=== PATIENT | male | born 1965 | race Caucasian/White ===

== ENCOUNTER 2017-08-15 13:55 | Inpatient (IN) | payer MEDICARE, OTHER ==
[2017-08-15] MEDS: NS 1,000 ML IV ×4 (14:30→18:13)
[2017-08-15 14:59] LABS: BASO % 0.2 % (0.0-1.0); EOS % 0.1 % (0.0-3.0); HEMATOCRIT 42.9 % (42.0-52.0); HEMOGLOBIN 14.5 g/dl (14.0-18.0); IMMATURE GRANULOCYTE % 1.3 % (0-3.0); LYMPH # 0.9 10^3/uL (1.5-4.5); LYMPH % 5.1 % (24.0-44.0); MEAN CORPUSCULAR HEMOGLOBIN 29.4 pg (27.0-33.0); MEAN CORPUSCULAR HGB CONC 33.8 g/dl (32.0-36.5); MEAN CORPUSCULAR VOLUME 86.8 fl (80.0-96.0); MONO # 0.8 10^3/uL (0.0-0.8); MONO % 4.4 % (0.0-5.0); NEUTROPHILS # 16.1 10^3/uL (1.8-7.7); NEUTROPHILS % 88.9 % (36.0-66.0); PLATELET COUNT, AUTOMATED 378 10^3/uL (150-450); RED BLOOD COUNT 4.94 10^6/uL (4.30-6.10); RED CELL DISTRIBUTION WIDTH 12.7 % (11.5-14.5); VENOUS BASE EXCESS -1.4 (-2.0-2.0); VENOUS HCO3 23.5 MEQ/L (23.0-27.0); VENOUS O2 SATURATION 61.5 % (60.0-80.0); VENOUS PARTIAL PRESSURE CO2 40.3 mmHg (38.0-50.0); VENOUS PARTIAL PRESSURE O2 34.9 mmHg (30.0-50.0); VENOUS PH 7.384 UNITS (7.330-7.430); VENOUS STANDARD HCO3 22.5 MEQ/L; VENOUS TOTAL CO2 24.8 MEQ/L (24.0-28.0); WHITE BLOOD COUNT 18.1 10^3/uL (4.0-10.0)
[2017-08-15] MEDS: ACETAMINOPHEN TAB 650MG DOSE (2X325MG) PO ×2 (15:11→22:52)
[2017-08-15 15:17] LABS: APPEARANCE, URINE HAZY (CLEAR); BACTERIA, URINE AUTO NEGATIVE (NEGATIVE); BILIRUBIN, URINE AUTO NEGATIVE (NEGATIVE); BLOOD, URINE BLOOD 1+ (NEGATIVE); COLOR, URINE YELLOW (YELLOW); GLUCOSE, URINE (UA) AUTO 3+ mg/dL (NEGATIVE); KETONE, URINE AUTO TRACE mg/dL (NEGATIVE); LEUKOCYTE ESTERASE, URINE AUTO NEGATIVE (NEGATIVE); NITRITE, URINE AUTO NEGATIVE (NEGATIVE); OSMOLALITY SERUM 308 MOSM/KG (275-295); PROTEIN, URINE AUTO NEGATIVE (NEGATIVE); RBC, URINE AUTO 1 /HPF (0-3); SPECIFIC GRAVITY URINE AUTO 1.018 (1.002-1.035); SQUAMOUS EPITHELIAL CELL UR AU 0 /HPF (0-6); WBC, URINE AUTO 5 /HPF (0-3)
[2017-08-15 15:21] LABS: AMMONIA 29 uMOL/L (<32)
[2017-08-15 15:27] LABS: ALBUMIN 2.3 GM/DL (3.2-5.2); ALBUMIN/GLOBULIN RATIO 0.42 (1.00-1.93); ALKALINE PHOSPHATASE 151 U/L (45-117); ALT/SGPT 14 U/L (12-78); ANION GAP 13 MEQ/L (8-16); AST/SGOT 17 U/L (7-37); BILIRUBIN,DIRECT 0.7 MG/DL (0.0-0.2); BILIRUBIN,TOTAL 1.6 MG/DL (0.2-1.0); BLOOD UREA NITROGEN 43 MG/DL (7-18); CALCIUM LEVEL 8.6 MG/DL (8.5-10.1); CARBON DIOXIDE LEVEL 23 MEQ/L (21-32); CHLORIDE LEVEL 91 MEQ/L (98-107); CPK CREATINE PHOSPHOKINASE 45 U/L (39-308); CREATININE FOR GFR 1.87 MG/DL (0.70-1.30); GLOMERULAR FILTRATION RATE 40.6 (>56); SODIUM LEVEL 127 MEQ/L (136-145); TOTAL PROTEIN 7.8 GM/DL (6.4-8.2); TROPONIN I < 0.02 NG/ML (< 0.10)
[2017-08-15 15:29] LABS: CK-MB VALUE MASS < 1.0 NG/ML (<3.6); ETHYL ALCOHOL (ETHANOL) < 0.003 % (0.000-0.010); GLUCOSE, FASTING 473 MG/DL (70-100); MB/CK RELATIVE INDEX 2.22 (< OR =4); POTASSIUM SERUM 5.3 MEQ/L (3.5-5.1)
[2017-08-15 15:30] LABS: AMPHETAMINES LEVEL URINE NEGATIVE (NEGATIVE); BARBITURATES URINE NEGATIVE (NEGATIVE); BENZODIAZEPINES URINE NEGATIVE (NEGATIVE); CANNABINOIDS URINE NEGATIVE (NEGATIVE); COCAINE METABOLITE URINE NEGATIVE (NEGATIVE); METHADONE URINE NEGATIVE (NEGATIVE); OPIATES URINE NEGATIVE (NEGATIVE); PHENCYCLIDINE URINE NEGATIVE (NEGATIVE)
[2017-08-15 15:31] LABS: LACTIC ACID SEPSIS PROTOCOL 3.9 MMOL/L (0.4-2.0)
[2017-08-15] MEDS: CEFTRIAXONE SOD 1 GM in APPROPRIATE DILUENT 1 EA IV (16:15)
[2017-08-15] MEDS: HumaLOG INSULIN (NovoLOG) PER UNIT SC ×3 (16:19→21:36)
[2017-08-15 16:25] LABS: BEDSIDE GLUCOSE 422 MG/DL (70-105)
[2017-08-15] MEDS ORDERED: NS 1,000 ML IV (16:45)
[2017-08-15] MEDS ORDERED: GLUCOSE 4 GM CHEW TABLET PO (17:45)
[2017-08-15] MEDS ORDERED: DEXTROSE 50% 50 ML SYRINGE IV (17:45)
[2017-08-15] MEDS ORDERED: GLUCAGON FOR INJ 1 MG VIAL (J1610) SC (17:45)
[2017-08-15] MEDS: MEROPENEM INJ 1 GM in APPROPRIATE DILUENT 1 EA IV (17:54)
[2017-08-15 18:10] LABS: BEDSIDE GLUCOSE 320 MG/DL (70-105)
[2017-08-15] MEDS: VANCOMYCIN HCL 1,000 MG, VIAL MATE ADAPTER 1 EACH in D5W 250 ML IV (18:37)
[2017-08-15 18:45] LABS: ESTIMATED AVERAGE GLUCOSE 240 MG/DL (60-110)
[2017-08-15 18:55] LABS: ANION GAP 8 MEQ/L (8-16); BLOOD UREA NITROGEN 40 MG/DL (7-18); CALCIUM LEVEL 7.8 MG/DL (8.5-10.1); CARBON DIOXIDE LEVEL 25 MEQ/L (21-32); CHLORIDE LEVEL 99 MEQ/L (98-107); CREATININE FOR GFR 1.31 MG/DL (0.70-1.30); GLOMERULAR FILTRATION RATE > 60.0 (>56); GLUCOSE, FASTING 315 MG/DL (70-100); POTASSIUM SERUM 4.4 MEQ/L (3.5-5.1); SODIUM LEVEL 132 MEQ/L (136-145)
[2017-08-15 19:00] LABS: LACTIC ACID SEPSIS PROTOCOL 2.6 MMOL/L (0.4-2.0)
[2017-08-15 21:32] LABS: BEDSIDE GLUCOSE 306 MG/DL (70-105)
[2017-08-15] MEDS: SIMVASTATIN 10 MG TAB PO (21:35)
[2017-08-15] MEDS: HEPARIN SOD (PORCINE) 5000 UNITS/ML VIAL SC (21:36)
[2017-08-16 00:52] LABS: BEDSIDE GLUCOSE 326 MG/DL (70-105)
[2017-08-16] MEDS: MEROPENEM INJ 1 GM in APPROPRIATE DILUENT 1 EA IV ×3 (01:27→17:16)
[2017-08-16] MEDS: HumaLOG INSULIN (NovoLOG) PER UNIT SC ×6 (01:27→21:00)
[2017-08-16] MEDS: NS 1,000 ML IV ×3 (02:41→17:16)
[2017-08-16 05:54] LABS: BEDSIDE GLUCOSE 222 MG/DL (70-105)
[2017-08-16] MEDS: HEPARIN SOD (PORCINE) 5000 UNITS/ML VIAL SC ×3 (05:59→21:50)
[2017-08-16] MEDS: VANCOMYCIN HCL 1,000 MG, VIAL MATE ADAPTER 1 EACH in D5W 250 ML IV ×2 (06:39→18:37)
[2017-08-16 08:01] LABS: HEMATOCRIT 33.7 % (42.0-52.0); HEMOGLOBIN 11.4 g/dl (14.0-18.0); MEAN CORPUSCULAR HEMOGLOBIN 29.7 pg (27.0-33.0); MEAN CORPUSCULAR HGB CONC 33.8 g/dl (32.0-36.5); MEAN CORPUSCULAR VOLUME 87.8 fl (80.0-96.0); PLATELET COUNT, AUTOMATED 271 10^3/uL (150-450); RED BLOOD COUNT 3.84 10^6/uL (4.30-6.10); WHITE BLOOD COUNT 16.3 10^3/uL (4.0-10.0)
[2017-08-16 08:03] LABS: ADD MANUAL DIFFER YES; DIFF SLIDE NUMBER 87; POSITIVE MORPH POS FLAG
[2017-08-16 08:21] LABS: BANDS 2 % (< 11); LYMPHOCYTES 5 % (16-52); MONOCYTES 5 % (0-8); NEUTROPHILS 88 % (35-75); PLATELET ESTIMATE NORMAL (NORMAL)
[2017-08-16] MEDS: ASPIRIN 81 MG ENTERIC TAB PO (08:24)
[2017-08-16] MEDS: LEVEMIR (INSULIN DETEMIR) 1 UNITS/0.01ML SC ×2 (08:24→21:50)
[2017-08-16] MEDS: ACETAMINOPHEN TAB 650MG DOSE (2X325MG) PO (08:24)
[2017-08-16 08:35] LABS: ANION GAP 8 MEQ/L (8-16); BLOOD UREA NITROGEN 34 MG/DL (7-18); CALCIUM LEVEL 7.8 MG/DL (8.5-10.1); CARBON DIOXIDE LEVEL 24 MEQ/L (21-32); CHLORIDE LEVEL 103 MEQ/L (98-107); CREATININE FOR GFR 1.01 MG/DL (0.70-1.30); GLOMERULAR FILTRATION RATE > 60.0 (>56); GLUCOSE, FASTING 258 MG/DL (70-100); POTASSIUM SERUM 4.1 MEQ/L (3.5-5.1); SODIUM LEVEL 135 MEQ/L (136-145)
[2017-08-16 12:38] LABS: BEDSIDE GLUCOSE 202 MG/DL (70-105)
[2017-08-16 16:57] LABS: BEDSIDE GLUCOSE 235 MG/DL (70-105)
[2017-08-16 21:01] LABS: BEDSIDE GLUCOSE 200 MG/DL (70-105)
[2017-08-16] MEDS: SIMVASTATIN 10 MG TAB PO (21:49)
[2017-08-17] MEDS: MEROPENEM INJ 1 GM in APPROPRIATE DILUENT 1 EA IV (02:06)
[2017-08-17] MEDS: NS 1,000 ML IV ×3 (05:03→23:17)
[2017-08-17 05:36] LABS: HEMATOCRIT 30.8 % (42.0-52.0); HEMOGLOBIN 10.2 g/dl (14.0-18.0); MEAN CORPUSCULAR HEMOGLOBIN 29.1 pg (27.0-33.0); MEAN CORPUSCULAR HGB CONC 33.1 g/dl (32.0-36.5); PLATELET COUNT, AUTOMATED 232 10^3/uL (150-450); RED CELL DISTRIBUTION WIDTH 12.9 % (11.5-14.5)
[2017-08-17 05:50] LABS: ADD MANUAL DIFFER YES; DIFF SLIDE NUMBER 54; POSITIVE MORPH POS FLAG
[2017-08-17 05:55] LABS: BANDS 4 % (< 11); EOSINOPHILS 2 % (0-5); LYMPHOCYTES 11 % (16-52); MONOCYTES 8 % (0-8); NEUTROPHILS 75 % (35-75); PLATELET ESTIMATE NORMAL (NORMAL)
[2017-08-17 05:59] LABS: ANION GAP 5 MEQ/L (8-16); BLOOD UREA NITROGEN 23 MG/DL (7-18); CALCIUM LEVEL 7.4 MG/DL (8.5-10.1); CARBON DIOXIDE LEVEL 25 MEQ/L (21-32); CHLORIDE LEVEL 104 MEQ/L (98-107); CREATININE FOR GFR 0.62 MG/DL (0.70-1.30); GLOMERULAR FILTRATION RATE > 60.0 (>56); GLUCOSE, FASTING 119 MG/DL (70-100); SODIUM LEVEL 134 MEQ/L (136-145); VANCOMYCIN LEVEL TROUGH 7.6 UG/ML (10.0-20.0)
[2017-08-17] MEDS: VANCOMYCIN HCL 1,000 MG, VIAL MATE ADAPTER 1 EACH in D5W 250 ML IV ×3 (07:04→23:16)
[2017-08-17] MEDS: HEPARIN SOD (PORCINE) 5000 UNITS/ML VIAL SC ×3 (07:04→21:55)
[2017-08-17] MEDS: ASPIRIN 81 MG ENTERIC TAB PO (08:14)
[2017-08-17] MEDS: HumaLOG INSULIN (NovoLOG) PER UNIT SC ×4 (08:14→21:00)
[2017-08-17] MEDS: LEVEMIR (INSULIN DETEMIR) 1 UNITS/0.01ML SC ×2 (08:23→21:56)
[2017-08-17 11:58] LABS: BEDSIDE GLUCOSE 165 MG/DL (70-105)
[2017-08-17] MEDS: ACETAMINOPHEN TAB 650MG DOSE (2X325MG) PO (14:27)
[2017-08-17] MEDS: CALCIUM CARBONATE 500 MG CHEW U/D PO ×2 (16:39→21:55)
[2017-08-17 17:54] LABS: BEDSIDE GLUCOSE 213 MG/DL (70-105)
[2017-08-17 21:07] LABS: BEDSIDE GLUCOSE 193 MG/DL (70-105)
[2017-08-17] MEDS: SIMVASTATIN 10 MG TAB PO (21:56)
[2017-08-18] MEDS: NS 1,000 ML IV ×2 (01:25→09:25)
[2017-08-18 05:39] LABS: BASO % 0.2 % (0.0-1.0); EOS # 0.2 10^3/uL (0.0-0.50); HEMATOCRIT 30.1 % (42.0-52.0); HEMOGLOBIN 10.1 g/dl (14.0-18.0); IMMATURE GRANULOCYTE % 1.6 % (0-3.0); LYMPH # 1.5 10^3/uL (1.5-4.5); LYMPH % 15.9 % (24.0-44.0); MEAN CORPUSCULAR HEMOGLOBIN 28.9 pg (27.0-33.0); MEAN CORPUSCULAR HGB CONC 33.6 g/dl (32.0-36.5); MONO # 0.7 10^3/uL (0.0-0.8); MONO % 7.6 % (0.0-5.0); NEUTROPHILS # 6.7 10^3/uL (1.8-7.7); NEUTROPHILS % 72.7 % (36.0-66.0); PLATELET COUNT, AUTOMATED 238 10^3/uL (150-450); RED CELL DISTRIBUTION WIDTH 12.8 % (11.5-14.5); WHITE BLOOD COUNT 9.2 10^3/uL (4.0-10.0)
[2017-08-18 06:13] LABS: ANION GAP 7 MEQ/L (8-16); BLOOD UREA NITROGEN 15 MG/DL (7-18); CALCIUM LEVEL 7.6 MG/DL (8.5-10.1); CARBON DIOXIDE LEVEL 24 MEQ/L (21-32); CHLORIDE LEVEL 105 MEQ/L (98-107); CREATININE FOR GFR 0.51 MG/DL (0.70-1.30); GLOMERULAR FILTRATION RATE > 60.0 (>56); GLUCOSE, FASTING 86 MG/DL (70-100); POTASSIUM SERUM 3.9 MEQ/L (3.5-5.1); SODIUM LEVEL 136 MEQ/L (136-145)
[2017-08-18] MEDS: HEPARIN SOD (PORCINE) 5000 UNITS/ML VIAL SC ×3 (06:57→21:58)
[2017-08-18] MEDS: VANCOMYCIN HCL 1,000 MG, VIAL MATE ADAPTER 1 EACH in D5W 250 ML IV ×3 (06:57→23:09)
[2017-08-18] MEDS: HumaLOG INSULIN (NovoLOG) PER UNIT SC ×4 (07:20→20:56)
[2017-08-18] MEDS: ASPIRIN 81 MG ENTERIC TAB PO (07:38)
[2017-08-18] MEDS: LEVEMIR (INSULIN DETEMIR) 1 UNITS/0.01ML SC ×2 (09:00→21:59)
[2017-08-18 12:18] LABS: BEDSIDE GLUCOSE 194 MG/DL (70-105)
[2017-08-18 15:24] LABS: VANCOMYCIN LEVEL TROUGH 9.7 UG/ML (10.0-20.0)
[2017-08-18 17:24] LABS: BEDSIDE GLUCOSE 187 MG/DL (70-105)
[2017-08-18 21:25] LABS: BEDSIDE GLUCOSE 243 MG/DL (70-105)
[2017-08-18] MEDS: SIMVASTATIN 10 MG TAB PO (21:58)
[2017-08-19] MEDS: HEPARIN SOD (PORCINE) 5000 UNITS/ML VIAL SC ×3 (06:33→22:06)
[2017-08-19] MEDS: ACETAMINOPHEN TAB 650MG DOSE (2X325MG) PO (06:33)
[2017-08-19] MEDS: VANCOMYCIN HCL 1,000 MG, VIAL MATE ADAPTER 1 EACH in D5W 250 ML IV (06:33)
[2017-08-19 07:29] LABS: BASO % 0.4 % (0.0-1.0); EOS # 0.2 10^3/uL (0.0-0.50); HEMOGLOBIN 9.8 g/dl (14.0-18.0); IMMATURE GRANULOCYTE % 2.4 % (0-3.0); LYMPH # 1.5 10^3/uL (1.5-4.5); LYMPH % 18.1 % (24.0-44.0); MEAN CORPUSCULAR HEMOGLOBIN 29.4 pg (27.0-33.0); MEAN CORPUSCULAR HGB CONC 33.8 g/dl (32.0-36.5); MEAN CORPUSCULAR VOLUME 87.1 fl (80.0-96.0); MONO # 0.8 10^3/uL (0.0-0.8); MONO % 9.4 % (0.0-5.0); NEUTROPHILS # 5.7 10^3/uL (1.8-7.7); NEUTROPHILS % 67.7 % (36.0-66.0); PLATELET COUNT, AUTOMATED 233 10^3/uL (150-450); RED BLOOD COUNT 3.33 10^6/uL (4.30-6.10); RED CELL DISTRIBUTION WIDTH 12.8 % (11.5-14.5); WHITE BLOOD COUNT 8.4 10^3/uL (4.0-10.0)
[2017-08-19 07:37] LABS: ANION GAP 6 MEQ/L (8-16); BLOOD UREA NITROGEN 10 MG/DL (7-18); CALCIUM LEVEL 7.5 MG/DL (8.5-10.1); CARBON DIOXIDE LEVEL 26 MEQ/L (21-32); CHLORIDE LEVEL 102 MEQ/L (98-107); CREATININE FOR GFR 0.42 MG/DL (0.70-1.30); GLOMERULAR FILTRATION RATE > 60.0 (>56); GLUCOSE, FASTING 105 MG/DL (70-100); POTASSIUM SERUM 3.8 MEQ/L (3.5-5.1); SODIUM LEVEL 134 MEQ/L (136-145)
[2017-08-19] MEDS: CEFAZOLIN SOD 1 GM in APPROPRIATE DILUENT 1 EA IV ×2 (09:14→17:01)
[2017-08-19] MEDS: ASPIRIN 81 MG ENTERIC TAB PO (09:14)
[2017-08-19] MEDS: LEVEMIR (INSULIN DETEMIR) 1 UNITS/0.01ML SC ×2 (09:14→22:07)
[2017-08-19] MEDS: HumaLOG INSULIN (NovoLOG) PER UNIT SC ×4 (09:15→22:07)
[2017-08-19 12:49] LABS: BEDSIDE GLUCOSE 163 MG/DL (70-105)
[2017-08-19] MEDS: traMADol 50 MG TAB PO (14:56)
[2017-08-19 17:12] LABS: BEDSIDE GLUCOSE 244 MG/DL (70-105)
[2017-08-19 20:29] LABS: BEDSIDE GLUCOSE 317 MG/DL (70-105)
[2017-08-19] MEDS: SIMVASTATIN 10 MG TAB PO (22:06)
[2017-08-20] MEDS: CEFAZOLIN SOD 1 GM in APPROPRIATE DILUENT 1 EA IV ×3 (01:01→17:18)
[2017-08-20] MEDS: traMADol 50 MG TAB PO ×2 (01:03→21:11)
[2017-08-20] MEDS: HEPARIN SOD (PORCINE) 5000 UNITS/ML VIAL SC ×3 (05:39→21:08)
[2017-08-20 05:55] LABS: HEMATOCRIT 29.5 % (42.0-52.0); HEMOGLOBIN 9.9 g/dl (14.0-18.0); MEAN CORPUSCULAR HEMOGLOBIN 29.3 pg (27.0-33.0); MEAN CORPUSCULAR HGB CONC 33.6 g/dl (32.0-36.5); MEAN CORPUSCULAR VOLUME 87.3 fl (80.0-96.0); PLATELET COUNT, AUTOMATED 254 10^3/uL (150-450); RED BLOOD COUNT 3.38 10^6/uL (4.30-6.10); RED CELL DISTRIBUTION WIDTH 12.9 % (11.5-14.5); WHITE BLOOD COUNT 8.4 10^3/uL (4.0-10.0)
[2017-08-20 05:56] LABS: POS COUNT POS FLAG; POSITIVE DIFF Y; POSITIVE MORPH POS FLAG
[2017-08-20 06:06] LABS: ADD MANUAL DIFFER YES; DIFF SLIDE NUMBER 16
[2017-08-20 06:19] LABS: C REACTIVE PROTEIN QUANTITATIV 9.29 MG/DL (0.00-0.30)
[2017-08-20 06:23] LABS: ANION GAP 6 MEQ/L (8-16); BLOOD UREA NITROGEN 11 MG/DL (7-18); CALCIUM LEVEL 7.9 MG/DL (8.5-10.1); CARBON DIOXIDE LEVEL 27 MEQ/L (21-32); CHLORIDE LEVEL 103 MEQ/L (98-107); CREATININE FOR GFR 0.47 MG/DL (0.70-1.30); GLOMERULAR FILTRATION RATE > 60.0 (>56); GLUCOSE, FASTING 172 MG/DL (70-100); POTASSIUM SERUM 3.8 MEQ/L (3.5-5.1); SODIUM LEVEL 136 MEQ/L (136-145)
[2017-08-20 06:47] LABS: EOSINOPHILS 2 % (0-5); LYMPHOCYTES 24 % (16-52); METAMYELOCYTES 1 % (0-0); MONOCYTES 6 % (0-8); MYELOCYTES 1 % (0-0); NEUTROPHILS 66 % (35-75); PLATELET ESTIMATE NORMAL (NORMAL)
[2017-08-20] MEDS: HumaLOG INSULIN (NovoLOG) PER UNIT SC ×4 (08:50→21:09)
[2017-08-20] MEDS: LEVEMIR (INSULIN DETEMIR) 1 UNITS/0.01ML SC ×2 (08:51→21:08)
[2017-08-20] MEDS: ASPIRIN 81 MG ENTERIC TAB PO (08:51)
[2017-08-20] MEDS ORDERED: ANUSOL HC 25MG SUPP PR (11:00)
[2017-08-20 21:06] LABS: BEDSIDE GLUCOSE 312 MG/DL (70-105)
[2017-08-20 21:06] LABS: BEDSIDE GLUCOSE 238 MG/DL (70-105)
[2017-08-20 21:07] LABS: BEDSIDE GLUCOSE 364 MG/DL (70-105)
[2017-08-20] MEDS: SIMVASTATIN 10 MG TAB PO (21:07)
[2017-08-21] MEDS: CEFAZOLIN SOD 1 GM in APPROPRIATE DILUENT 1 EA IV ×3 (01:38→17:24)
[2017-08-21] MEDS: PERCOCET 5MG/325MG TAB PO (01:41)
[2017-08-21] MEDS: HEPARIN SOD (PORCINE) 5000 UNITS/ML VIAL SC ×3 (05:49→20:58)
[2017-08-21 06:09] LABS: HEMATOCRIT 29.2 % (42.0-52.0); HEMOGLOBIN 9.8 g/dl (14.0-18.0); MEAN CORPUSCULAR HEMOGLOBIN 29.4 pg (27.0-33.0); MEAN CORPUSCULAR HGB CONC 33.6 g/dl (32.0-36.5); MEAN CORPUSCULAR VOLUME 87.7 fl (80.0-96.0); PLATELET COUNT, AUTOMATED 316 10^3/uL (150-450); RED BLOOD COUNT 3.33 10^6/uL (4.30-6.10); RED CELL DISTRIBUTION WIDTH 13.1 % (11.5-14.5); WHITE BLOOD COUNT 8.4 10^3/uL (4.0-10.0)
[2017-08-21 06:12] LABS: ADD MANUAL DIFFER YES; DIFF SLIDE NUMBER 9; POS COUNT POS FLAG; POSITIVE MORPH POS FLAG
[2017-08-21 06:25] LABS: ANION GAP 7 MEQ/L (8-16); BLOOD UREA NITROGEN 11 MG/DL (7-18); C REACTIVE PROTEIN QUANTITATIV 7.76 MG/DL (0.00-0.30); CARBON DIOXIDE LEVEL 27 MEQ/L (21-32); CHLORIDE LEVEL 102 MEQ/L (98-107); CREATININE FOR GFR 0.52 MG/DL (0.70-1.30); GLOMERULAR FILTRATION RATE > 60.0 (>56); GLUCOSE, FASTING 216 MG/DL (70-100); POTASSIUM SERUM 3.9 MEQ/L (3.5-5.1); SODIUM LEVEL 136 MEQ/L (136-145)
[2017-08-21 06:47] LABS: BASOPHILS 1 % (0-4); EOSINOPHILS 5 % (0-5); LYMPHOCYTES 28 % (16-52); METAMYELOCYTES 1 % (0-0); MONOCYTES 7 % (0-8); MYELOCYTES 1 % (0-0); NEUTROPHILS 57 % (35-75); PLATELET ESTIMATE NORMAL (NORMAL)
[2017-08-21] MEDS: ASPIRIN 81 MG ENTERIC TAB PO (09:38)
[2017-08-21] MEDS: LEVEMIR (INSULIN DETEMIR) 1 UNITS/0.01ML SC ×2 (09:38→20:58)
[2017-08-21] MEDS: HumaLOG INSULIN (NovoLOG) PER UNIT SC ×4 (09:39→20:58)
[2017-08-21] MEDS: traMADol 50 MG TAB PO ×2 (09:41→17:24)
[2017-08-21] MEDS: GASTROGRAFIN SOLUTION 30ML PO ×4 (11:00→13:46)
[2017-08-21 11:49] LABS: BEDSIDE GLUCOSE 282 MG/DL (70-105)
[2017-08-21] MEDS ORDERED: ISOVUE-370 76% 100ML VIAL (Q9967) As Ordered (12:25)
[2017-08-21 16:50] LABS: BEDSIDE GLUCOSE 124 MG/DL (70-105)
[2017-08-21 20:47] LABS: BEDSIDE GLUCOSE 356 MG/DL (70-105)
[2017-08-21] MEDS: SIMVASTATIN 10 MG TAB PO (20:57)
[2017-08-22] MEDS: CEFAZOLIN SOD 1 GM in APPROPRIATE DILUENT 1 EA IV ×2 (00:41→08:11)
[2017-08-22] MEDS: traMADol 50 MG TAB PO ×4 (01:40→23:18)
[2017-08-22] MEDS: HEPARIN SOD (PORCINE) 5000 UNITS/ML VIAL SC ×3 (06:04→21:29)
[2017-08-22 07:25] LABS: HEMATOCRIT 30.5 % (42.0-52.0); HEMOGLOBIN 10.2 g/dl (14.0-18.0); MEAN CORPUSCULAR HEMOGLOBIN 29.1 pg (27.0-33.0); MEAN CORPUSCULAR HGB CONC 33.4 g/dl (32.0-36.5); MEAN CORPUSCULAR VOLUME 86.9 fl (80.0-96.0); PLATELET COUNT, AUTOMATED 370 10^3/uL (150-450); RED BLOOD COUNT 3.51 10^6/uL (4.30-6.10); RED CELL DISTRIBUTION WIDTH 13.2 % (11.5-14.5); WHITE BLOOD COUNT 8.9 10^3/uL (4.0-10.0)
[2017-08-22 07:34] LABS: POS COUNT POS FLAG; POSITIVE MORPH POS FLAG
[2017-08-22 07:35] LABS: ADD MANUAL DIFFER YES; DIFF SLIDE NUMBER 6
[2017-08-22 07:43] LABS: ANION GAP 5 MEQ/L (8-16); BLOOD UREA NITROGEN 10 MG/DL (7-18); CALCIUM LEVEL 8.1 MG/DL (8.5-10.1); CARBON DIOXIDE LEVEL 31 MEQ/L (21-32); CHLORIDE LEVEL 100 MEQ/L (98-107); GLOMERULAR FILTRATION RATE > 60.0 (>56); GLUCOSE, FASTING 254 MG/DL (70-100); POTASSIUM SERUM 4.2 MEQ/L (3.5-5.1); SODIUM LEVEL 136 MEQ/L (136-145)
[2017-08-22 07:44] LABS: C REACTIVE PROTEIN QUANTITATIV 6.56 MG/DL (0.00-0.30)
[2017-08-22 08:03] LABS: ATYPICAL LYMPH 2 % (0-5); EOSINOPHILS 1 % (0-5); HYPOCHROMASIA 1+; LYMPHOCYTES 27 % (16-52); METAMYELOCYTES 3 % (0-0); MONOCYTES 4 % (0-8); MYELOCYTES 3 % (0-0); NEUTROPHILS 60 % (35-75); PLATELET ESTIMATE NORMAL (NORMAL)
[2017-08-22 08:04] LABS: ANISOCYTOSIS 1+; MICROCYTOSIS 1+
[2017-08-22] MEDS: ASPIRIN 81 MG ENTERIC TAB PO (08:10)
[2017-08-22] MEDS: HumaLOG INSULIN (NovoLOG) PER UNIT SC ×4 (08:10→21:28)
[2017-08-22] MEDS: LEVEMIR (INSULIN DETEMIR) 1 UNITS/0.01ML SC ×2 (08:11→21:28)
[2017-08-22] MEDS: ACETAMINOPHEN TAB 650MG DOSE (2X325MG) PO (08:16)
[2017-08-22] MEDS: GABAPENTIN 100 MG CAP PO ×3 (10:30→21:28)
[2017-08-22 12:09] LABS: BEDSIDE GLUCOSE 309 MG/DL (70-105)
[2017-08-22] MEDS ORDERED: LIDOCAINE 1% MDV 20ML VIAL As Ordered (13:58)
[2017-08-22] MEDS ORDERED: CEFAZOLIN SOD 2 GM in APPROPRIATE DILUENT 1 EA IV (16:00)
[2017-08-22 18:06] LABS: BEDSIDE GLUCOSE 325 MG/DL (70-105)
[2017-08-22 20:30] LABS: BEDSIDE GLUCOSE 337 MG/DL (70-105)
[2017-08-22] MEDS: SIMVASTATIN 10 MG TAB PO (21:28)
[2017-08-23] MEDS: HEPARIN SOD (PORCINE) 5000 UNITS/ML VIAL SC ×3 (05:28→21:33)
[2017-08-23] MEDS: traMADol 50 MG TAB PO ×3 (05:28→23:26)
[2017-08-23 05:48] LABS: BEDSIDE GLUCOSE 309 MG/DL (70-105)
[2017-08-23 07:27] LABS: C REACTIVE PROTEIN QUANTITATIV 5.95 MG/DL (0.00-0.30)
[2017-08-23] MEDS: LEVEMIR (INSULIN DETEMIR) 1 UNITS/0.01ML SC ×2 (07:56→21:34)
[2017-08-23] MEDS: GABAPENTIN 100 MG CAP PO ×3 (07:56→21:32)
[2017-08-23] MEDS: HumaLOG INSULIN (NovoLOG) PER UNIT SC ×4 (07:56→21:33)
[2017-08-23] MEDS: ASPIRIN 81 MG ENTERIC TAB PO (07:56)
[2017-08-23 11:59] LABS: BEDSIDE GLUCOSE 299 MG/DL (70-105)
[2017-08-23 17:48] LABS: BEDSIDE GLUCOSE 274 MG/DL (70-105)
[2017-08-23] MEDS: SIMVASTATIN 10 MG TAB PO (21:32)
[2017-08-24] MEDS: HEPARIN SOD (PORCINE) 5000 UNITS/ML VIAL SC ×3 (05:15→21:04)
[2017-08-24 06:26] LABS: BEDSIDE GLUCOSE 295 MG/DL (70-105)
[2017-08-24] MEDS: traMADol 50 MG TAB PO ×3 (08:17→22:05)
[2017-08-24 08:45] LABS: BEDSIDE GLUCOSE 376 MG/DL (70-105)
[2017-08-24] MEDS: HumaLOG INSULIN (NovoLOG) PER UNIT SC ×4 (08:45→21:04)
[2017-08-24] MEDS: ASPIRIN 81 MG ENTERIC TAB PO (08:45)
[2017-08-24] MEDS: GABAPENTIN 100 MG CAP PO ×3 (08:45→21:03)
[2017-08-24] MEDS: LEVEMIR (INSULIN DETEMIR) 1 UNITS/0.01ML SC ×2 (08:46→21:04)
[2017-08-24 11:49] LABS: BEDSIDE GLUCOSE 301 MG/DL (70-105)
[2017-08-24] MEDS: ENALAPRIL MALEATE 10 MG TAB PO (15:58)
[2017-08-24 17:02] LABS: BEDSIDE GLUCOSE 400 MG/DL (70-105)
[2017-08-24 20:49] LABS: BEDSIDE GLUCOSE 382 MG/DL (70-105)
[2017-08-24] MEDS: SIMVASTATIN 10 MG TAB PO (21:03)
[2017-08-24] MEDS: ACETAMINOPHEN TAB 650MG DOSE (2X325MG) PO (21:06)
[2017-08-25] MEDS: HEPARIN SOD (PORCINE) 5000 UNITS/ML VIAL SC ×3 (05:40→21:16)
[2017-08-25 06:27] LABS: BEDSIDE GLUCOSE 280 MG/DL (70-105)
[2017-08-25] MEDS: traMADol 50 MG TAB PO ×3 (06:44→21:15)
[2017-08-25] MEDS: ASPIRIN 81 MG ENTERIC TAB PO (07:52)
[2017-08-25] MEDS: ENALAPRIL MALEATE 10 MG TAB PO (07:52)
[2017-08-25] MEDS: GABAPENTIN 100 MG CAP PO ×3 (07:52→21:15)
[2017-08-25] MEDS: HumaLOG INSULIN (NovoLOG) PER UNIT SC ×4 (07:53→21:15)
[2017-08-25] MEDS: LEVEMIR (INSULIN DETEMIR) 1 UNITS/0.01ML SC ×2 (07:53→21:00)
[2017-08-25 11:58] LABS: BEDSIDE GLUCOSE 298 MG/DL (70-105)
[2017-08-25 17:10] LABS: BEDSIDE GLUCOSE 359 MG/DL (70-105)
[2017-08-25] MEDS: SIMVASTATIN 10 MG TAB PO (21:15)
[2017-08-26] MEDS: traMADol 50 MG TAB PO ×3 (05:31→22:35)
[2017-08-26] MEDS: HEPARIN SOD (PORCINE) 5000 UNITS/ML VIAL SC ×3 (05:31→22:23)
[2017-08-26 06:17] LABS: ERYTHROCYTE SEDIMENTATION RATE 94 mm/hr (0-20)
[2017-08-26] MEDS: LIDOCAINE 5% OINT 30 GM TOP (07:51)
[2017-08-26] MEDS: ASPIRIN 81 MG ENTERIC TAB PO (07:51)
[2017-08-26] MEDS: ENALAPRIL MALEATE 10 MG TAB PO (07:51)
[2017-08-26] MEDS: GABAPENTIN 100 MG CAP PO ×3 (07:51→22:23)
[2017-08-26] MEDS: LEVEMIR (INSULIN DETEMIR) 1 UNITS/0.01ML SC ×2 (07:52→22:24)
[2017-08-26] MEDS: HumaLOG INSULIN (NovoLOG) PER UNIT SC ×4 (07:52→22:25)
[2017-08-26 13:11] LABS: BEDSIDE GLUCOSE 313 MG/DL (70-105)
[2017-08-26 13:11] LABS: BEDSIDE GLUCOSE 403 MG/DL (70-105)
[2017-08-26 13:11] LABS: BEDSIDE GLUCOSE 290 MG/DL (70-105)
[2017-08-26 19:52] LABS: BEDSIDE GLUCOSE 371 MG/DL (70-105)
[2017-08-26] MEDS: SIMVASTATIN 10 MG TAB PO (22:23)
[2017-08-26] MEDS: EUCERIN 120GM CREAM EXT (23:47)
[2017-08-27] MEDS: HEPARIN SOD (PORCINE) 5000 UNITS/ML VIAL SC ×3 (05:40→21:08)
[2017-08-27 06:59] LABS: HEMOGLOBIN 10.9 g/dl (13.5-17.5); MEAN CORPUSCULAR HEMOGLOBIN 29.5 pg (27.0-33.0); MEAN CORPUSCULAR VOLUME 89.4 fl (80.0-96.0); PLATELET COUNT, AUTOMATED 432 10^3/uL (150-450); RED BLOOD COUNT 3.69 10^6/uL (4.30-6.10); RED CELL DISTRIBUTION WIDTH 13.9 % (11.5-14.5); WHITE BLOOD COUNT 7.6 10^3/uL (4.0-10.0)
[2017-08-27 07:08] LABS: BEDSIDE GLUCOSE 440 MG/DL (70-105)
[2017-08-27 07:22] LABS: ALBUMIN 2.3 GM/DL (3.2-5.2); ALBUMIN/GLOBULIN RATIO 0.52 (1.00-1.93); ALKALINE PHOSPHATASE 88 U/L (45-117); ALT/SGPT 16 U/L (12-78); ANION GAP 4 MEQ/L (8-16); ANION GAP 6 MEQ/L (8-16); AST/SGOT 16 U/L (7-37); BILIRUBIN,TOTAL 0.3 MG/DL (0.2-1.0); BLOOD UREA NITROGEN 19 MG/DL (7-18); BLOOD UREA NITROGEN 20 MG/DL (7-18); C REACTIVE PROTEIN QUANTITATIV 1.81 MG/DL (0.00-0.30); CALCIUM LEVEL 8.5 MG/DL (8.5-10.1); CALCIUM LEVEL 8.6 MG/DL (8.5-10.1); CARBON DIOXIDE LEVEL 28 MEQ/L (21-32); CARBON DIOXIDE LEVEL 29 MEQ/L (21-32); CHLORIDE LEVEL 100 MEQ/L (98-107); CREATININE FOR GFR 0.66 MG/DL (0.70-1.30); CREATININE FOR GFR 0.67 MG/DL (0.70-1.30); GLOMERULAR FILTRATION RATE > 60.0 (>56); GLUCOSE, FASTING 330 MG/DL (70-100); GLUCOSE, FASTING 331 MG/DL (70-100); POTASSIUM SERUM 4.8 MEQ/L (3.5-5.1); SODIUM LEVEL 133 MEQ/L (136-145); SODIUM LEVEL 134 MEQ/L (136-145); TOTAL PROTEIN 6.7 GM/DL (6.4-8.2)
[2017-08-27] MEDS: HumaLOG INSULIN (NovoLOG) PER UNIT SC ×4 (07:30→21:11)
[2017-08-27] MEDS: ENALAPRIL MALEATE 10 MG TAB PO (07:55)
[2017-08-27] MEDS: ASPIRIN 81 MG ENTERIC TAB PO (07:55)
[2017-08-27] MEDS: GABAPENTIN 100 MG CAP PO ×3 (07:55→21:08)
[2017-08-27] MEDS: EUCERIN 120GM CREAM EXT (07:56)
[2017-08-27] MEDS: LIDOCAINE 5% OINT 30 GM TOP (07:57)
[2017-08-27] MEDS: LEVEMIR (INSULIN DETEMIR) 1 UNITS/0.01ML SC ×2 (09:04→21:11)
[2017-08-27 12:07] LABS: BEDSIDE GLUCOSE 335 MG/DL (70-105)
[2017-08-27] MEDS ORDERED: MIDAZOLAM INJ 2 MG/2 ML VIAL (J2250) As Ordered ×4 (15:42→15:59)
[2017-08-27 17:10] LABS: BEDSIDE GLUCOSE 220 MG/DL (70-105)
[2017-08-27 20:42] LABS: BEDSIDE GLUCOSE 338 MG/DL (70-105)
[2017-08-27] MEDS: SIMVASTATIN 10 MG TAB PO (21:08)
[2017-08-27] MEDS: traMADol 50 MG TAB PO ×2 (21:09→21:38)
[2017-08-28] MEDS: LIDOCAINE 5% OINT 30 GM TOP (01:35)
[2017-08-28] MEDS: HEPARIN SOD (PORCINE) 5000 UNITS/ML VIAL SC ×3 (05:18→21:09)
[2017-08-28] MEDS: traMADol 50 MG TAB PO ×2 (05:59→14:46)
[2017-08-28 06:55] LABS: HEMATOCRIT 33.1 % (42.0-52.0); HEMOGLOBIN 10.9 g/dl (13.5-17.5); MEAN CORPUSCULAR HGB CONC 32.9 g/dl (32.0-36.5); PLATELET COUNT, AUTOMATED 424 10^3/uL (150-450); RED BLOOD COUNT 3.76 10^6/uL (4.30-6.10); RED CELL DISTRIBUTION WIDTH 14.1 % (11.5-14.5)
[2017-08-28 07:13] LABS: ANION GAP 5 MEQ/L (8-16); BLOOD UREA NITROGEN 16 MG/DL (7-18); CALCIUM LEVEL 8.3 MG/DL (8.5-10.1); CARBON DIOXIDE LEVEL 27 MEQ/L (21-32); CHLORIDE LEVEL 102 MEQ/L (98-107); CREATININE FOR GFR 0.63 MG/DL (0.70-1.30); GLOMERULAR FILTRATION RATE > 60.0 (>56); GLUCOSE, FASTING 255 MG/DL (70-100); POTASSIUM SERUM 4.4 MEQ/L (3.5-5.1); SODIUM LEVEL 134 MEQ/L (136-145)
[2017-08-28 08:33] LABS: C REACTIVE PROTEIN QUANTITATIV 1.32 MG/DL (0.00-0.30)
[2017-08-28] MEDS: ASPIRIN 81 MG ENTERIC TAB PO (08:38)
[2017-08-28] MEDS: GABAPENTIN 100 MG CAP PO ×3 (08:38→21:08)
[2017-08-28] MEDS: HumaLOG INSULIN (NovoLOG) PER UNIT SC ×4 (08:39→21:08)
[2017-08-28] MEDS: LEVEMIR (INSULIN DETEMIR) 1 UNITS/0.01ML SC ×2 (08:39→21:07)
[2017-08-28] MEDS: EUCERIN 120GM CREAM EXT (08:40)
[2017-08-28] MEDS: ENALAPRIL MALEATE 10 MG TAB PO (08:40)
[2017-08-28 10:32] LABS: ERYTHROCYTE SEDIMENTATION RATE 93 mm/hr (0-20)
[2017-08-28 11:35] LABS: BEDSIDE GLUCOSE 336 MG/DL (70-105)
[2017-08-28 12:09] LABS: HEPATITIS C VIRUS ABY INDEX 0.3 INDEX (<0.8)
[2017-08-28 12:10] LABS: HIV 1&2 SCREEN CENTAUR NEGATIVE (NEGATIVE)
[2017-08-28 17:11] LABS: BEDSIDE GLUCOSE 406 MG/DL (70-105)
[2017-08-28] MEDS: SODIUM CHLORIDE 0.9% INJ 10 ML SYR IV (17:13)
[2017-08-28 20:19] LABS: BEDSIDE GLUCOSE 407 MG/DL (70-105)
[2017-08-28] MEDS: SIMVASTATIN 10 MG TAB PO (21:08)
[2017-08-29] MEDS: SODIUM CHLORIDE 0.9% INJ 10 ML SYR IV ×4 (01:07→18:47)
[2017-08-29] MEDS: traMADol 50 MG TAB PO (03:36)
[2017-08-29] MEDS: HEPARIN SOD (PORCINE) 5000 UNITS/ML VIAL SC ×2 (05:15→14:31)
[2017-08-29 05:29] LABS: HEMATOCRIT 34.7 % (42.0-52.0); HEMOGLOBIN 11.5 g/dl (13.5-17.5); MEAN CORPUSCULAR HEMOGLOBIN 29.6 pg (27.0-33.0); MEAN CORPUSCULAR HGB CONC 33.1 g/dl (32.0-36.5); MEAN CORPUSCULAR VOLUME 89.2 fl (80.0-96.0); PLATELET COUNT, AUTOMATED 427 10^3/uL (150-450); RED BLOOD COUNT 3.89 10^6/uL (4.30-6.10); RED CELL DISTRIBUTION WIDTH 14.1 % (11.5-14.5)
[2017-08-29 05:53] LABS: ANION GAP 4 MEQ/L (8-16); BLOOD UREA NITROGEN 16 MG/DL (7-18); CALCIUM LEVEL 8.6 MG/DL (8.5-10.1); CARBON DIOXIDE LEVEL 30 MEQ/L (21-32); CHLORIDE LEVEL 102 MEQ/L (98-107); CREATININE FOR GFR 0.74 MG/DL (0.70-1.30); GLOMERULAR FILTRATION RATE > 60.0 (>56); GLUCOSE, FASTING 339 MG/DL (70-100); POTASSIUM SERUM 4.8 MEQ/L (3.5-5.1); SODIUM LEVEL 136 MEQ/L (136-145)
[2017-08-29] MEDS: GABAPENTIN 100 MG CAP PO ×2 (08:17→17:03)
[2017-08-29] MEDS: ENALAPRIL MALEATE 10 MG TAB PO (08:17)
[2017-08-29] MEDS: HumaLOG INSULIN (NovoLOG) PER UNIT SC ×3 (08:17→17:09)
[2017-08-29] MEDS: ASPIRIN 81 MG ENTERIC TAB PO (08:18)
[2017-08-29] MEDS: LEVEMIR (INSULIN DETEMIR) 1 UNITS/0.01ML SC (08:18)
[2017-08-29] MEDS: LIDOCAINE 5% OINT 30 GM TOP (08:19)
[2017-08-29] MEDS: EUCERIN 120GM CREAM EXT (08:19)
[2017-08-29 12:05] LABS: BEDSIDE GLUCOSE 320 MG/DL (70-105)
[2017-08-29] MEDS ORDERED: CEFAZOLIN SOD 2 GM in APPROPRIATE DILUENT 1 EA IV (17:00)
[2017-08-29 17:03] LABS: BEDSIDE GLUCOSE 384 MG/DL (70-105)
[2017-08-29] MEDS: ACETAMINOPHEN TAB 650MG DOSE (2X325MG) PO (17:03)
== END 2017-08-29 19:00 | disposition home health service (06) | DRG 872 ==
LOC: M MS4PR 08-29 12:55 → M MSPAV 08-16 15:34 → M MS4PR 08-27 23:39 → M ED 13:55 → M ED INP 17:23
PROC: 0D9Q30Z Drainage of Anus with Drainage Device, Percutaneous Approach (ICD-10-PCS; principal; 2017-08-27 15:43)
PROC: 02HV33Z Insertion of Infusion Device into Superior Vena Cava, Percutaneous Approach (ICD-10-PCS; 2017-08-27 15:43)
DX: A41.01 Sepsis due to Methicillin susceptible Staphylococcus aureus (principal); N17.9 Acute kidney failure, unspecified; K61.0 Anal abscess; N39.0 Urinary tract infection, site not specified; N41.9 Inflammatory disease of prostate, unspecified; R65.20 Severe sepsis without septic shock; I10 Essential (primary) hypertension; E11.65 Type 2 diabetes mellitus with hyperglycemia; R31.0 Gross hematuria; R32 Unspecified urinary incontinence; K64.4 Residual hemorrhoidal skin tags; E78.5 Hyperlipidemia, unspecified; Z79.82 Long term (current) use of aspirin; Z79.899 Other long term (current) drug therapy; F17.200 Nicotine dependence, unspecified, uncomplicated

== ENCOUNTER → 2017-09-10 | Outpatient (REF) | payer MEDICARE ==
[2017-09-10 16:39] LABS: BASO % 0.3 % (0.0-1.0); EOS # 0.4 10^3/uL (0.0-0.50); EOS % 5.7 % (0.0-3.0); HEMATOCRIT 37.5 % (42.0-52.0); HEMOGLOBIN 12.3 g/dl (13.5-17.5); LYMPH # 2.5 10^3/uL (1.5-4.5); LYMPH % 35.5 % (24.0-44.0); MEAN CORPUSCULAR HEMOGLOBIN 29.1 pg (27.0-33.0); MEAN CORPUSCULAR HGB CONC 32.8 g/dl (32.0-36.5); MEAN CORPUSCULAR VOLUME 88.9 fl (80.0-96.0); MONO # 0.5 10^3/uL (0.0-0.8); MONO % 7.1 % (0.0-5.0); NEUTROPHILS # 3.5 10^3/uL (1.8-7.7); NEUTROPHILS % 50.4 % (36.0-66.0); PLATELET COUNT, AUTOMATED 312 10^3/uL (150-450); RED BLOOD COUNT 4.22 10^6/uL (4.30-6.10); RED CELL DISTRIBUTION WIDTH 14.4 % (11.5-14.5); WHITE BLOOD COUNT 6.9 10^3/uL (4.0-10.0)
[2017-09-10 17:01] LABS: ALBUMIN 3.3 GM/DL (3.2-5.2); ALKALINE PHOSPHATASE 59 U/L (45-117); ALT/SGPT 13 U/L (12-78); ANION GAP 7 MEQ/L (8-16); AST/SGOT 15 U/L (7-37); BILIRUBIN,TOTAL 0.4 MG/DL (0.2-1.0); BLOOD UREA NITROGEN 16 MG/DL (7-18); C REACTIVE PROTEIN QUANTITATIV < 0.30 MG/DL (0.00-0.30); CALCIUM LEVEL 8.8 MG/DL (8.5-10.1); CARBON DIOXIDE LEVEL 26 MEQ/L (21-32); CHLORIDE LEVEL 103 MEQ/L (98-107); CPK CREATINE PHOSPHOKINASE 41 U/L (39-308); CREATININE FOR GFR 0.66 MG/DL (0.70-1.30); GLOMERULAR FILTRATION RATE > 60.0 (>56); GLUCOSE, FASTING 191 MG/DL (70-100); POTASSIUM SERUM 4.6 MEQ/L (3.5-5.1); SODIUM LEVEL 136 MEQ/L (136-145); TOTAL PROTEIN 7.4 GM/DL (6.4-8.2)
[2017-09-10 22:00] LABS: ERYTHROCYTE SEDIMENTATION RATE 62 mm/hr (0-20)
== END ==
LOC: M LAB REF 15:49
DX: Z87.440 Personal history of urinary (tract) infections (principal); Z22.321 Carrier or suspected carrier of Methicillin susceptible Staphylococcus aureus
CPT/HCPCS: 82550

== ENCOUNTER → 2017-09-16 | Outpatient (REF) | payer MEDICARE ==
[2017-09-16 11:35] LABS: BASO % 0.6 % (0.0-1.0); EOS # 0.3 10^3/uL (0.0-0.50); EOS % 4.4 % (0.0-3.0); HEMATOCRIT 38.9 % (42.0-52.0); HEMOGLOBIN 12.8 g/dl (13.5-17.5); IMMATURE GRANULOCYTE % 0.6 % (0-3.0); LYMPH # 2.4 10^3/uL (1.5-4.5); LYMPH % 33.5 % (24.0-44.0); MEAN CORPUSCULAR HEMOGLOBIN 29.1 pg (27.0-33.0); MEAN CORPUSCULAR HGB CONC 32.9 g/dl (32.0-36.5); MEAN CORPUSCULAR VOLUME 88.4 fl (80.0-96.0); MONO # 0.5 10^3/uL (0.0-0.8); MONO % 7.5 % (0.0-5.0); NEUTROPHILS # 3.9 10^3/uL (1.8-7.7); NEUTROPHILS % 53.4 % (36.0-66.0); PLATELET COUNT, AUTOMATED 260 10^3/uL (150-450); RED CELL DISTRIBUTION WIDTH 14.2 % (11.5-14.5); WHITE BLOOD COUNT 7.2 10^3/uL (4.0-10.0)
[2017-09-16 12:06] LABS: ALBUMIN 3.4 GM/DL (3.2-5.2); ALBUMIN/GLOBULIN RATIO 0.87 (1.00-1.93); ALKALINE PHOSPHATASE 60 U/L (45-117); ALT/SGPT 14 U/L (12-78); ANION GAP 8 MEQ/L (8-16); AST/SGOT 16 U/L (7-37); BILIRUBIN,TOTAL 0.3 MG/DL (0.2-1.0); BLOOD UREA NITROGEN 20 MG/DL (7-18); C REACTIVE PROTEIN QUANTITATIV 0.32 MG/DL (0.00-0.30); CALCIUM LEVEL 8.6 MG/DL (8.5-10.1); CARBON DIOXIDE LEVEL 27 MEQ/L (21-32); CHLORIDE LEVEL 103 MEQ/L (98-107); CPK CREATINE PHOSPHOKINASE 46 U/L (39-308); CREATININE FOR GFR 0.67 MG/DL (0.70-1.30); GLOMERULAR FILTRATION RATE > 60.0 (>56); GLUCOSE, FASTING 118 MG/DL (70-100); POTASSIUM SERUM 4.1 MEQ/L (3.5-5.1); SODIUM LEVEL 138 MEQ/L (136-145); TOTAL PROTEIN 7.3 GM/DL (6.4-8.2)
[2017-09-16 12:15] LABS: ERYTHROCYTE SEDIMENTATION RATE 49 mm/hr (0-20)
== END ==
LOC: M SHH 11:25
DX: Z22.321 Carrier or suspected carrier of Methicillin susceptible Staphylococcus aureus (principal); Z87.440 Personal history of urinary (tract) infections
CPT/HCPCS: 82550

== ENCOUNTER → 2017-09-30 | Outpatient (REF) | payer MEDICARE ==
[2017-09-30 12:47] LABS: BASO # 0.1 10^3/uL (0.0-0.2); BASO % 0.7 % (0.0-1.0); EOS # 0.5 10^3/uL (0.0-0.50); EOS % 6.9 % (0.0-3.0); HEMATOCRIT 42.3 % (42.0-52.0); HEMOGLOBIN 14.4 g/dl (13.5-17.5); IMMATURE GRANULOCYTE % 0.5 % (0-3.0); LYMPH # 2.8 10^3/uL (1.5-4.5); LYMPH % 36.9 % (24.0-44.0); MEAN CORPUSCULAR HEMOGLOBIN 30.1 pg (27.0-33.0); MEAN CORPUSCULAR VOLUME 88.3 fl (80.0-96.0); MONO # 0.6 10^3/uL (0.0-0.8); MONO % 7.2 % (0.0-5.0); NEUTROPHILS # 3.7 10^3/uL (1.8-7.7); NEUTROPHILS % 47.8 % (36.0-66.0); PLATELET COUNT, AUTOMATED 211 10^3/uL (150-450); RED BLOOD COUNT 4.79 10^6/uL (4.30-6.10); WHITE BLOOD COUNT 7.7 10^3/uL (4.0-10.0)
[2017-09-30 12:48] LABS: APPEARANCE, URINE CLEAR (CLEAR); BACTERIA, URINE AUTO NEGATIVE (NEGATIVE); BILIRUBIN, URINE AUTO NEGATIVE (NEGATIVE); BLOOD, URINE BLOOD 1+ (NEGATIVE); COLOR, URINE YELLOW (YELLOW); GLUCOSE, URINE (UA) AUTO 1+ mg/dL (NEGATIVE); KETONE, URINE AUTO NEGATIVE (NEGATIVE); LEUKOCYTE ESTERASE, URINE AUTO NEGATIVE (NEGATIVE); NITRITE, URINE AUTO NEGATIVE (NEGATIVE); PROTEIN, URINE AUTO NEGATIVE (NEGATIVE); RBC, URINE AUTO 2 /HPF (0-3); SPECIFIC GRAVITY URINE AUTO 1.018 (1.002-1.035); SQUAMOUS EPITHELIAL CELL UR AU 0 /HPF (0-6); UROBILINOGEN, URINE AUTO 0.2 mg/dL (0.0-2.0); WBC, URINE AUTO 0 /HPF (0-3)
[2017-09-30 12:52] LABS: ALBUMIN 3.8 GM/DL (3.2-5.2); ALKALINE PHOSPHATASE 54 U/L (45-117); ALT/SGPT 24 U/L (12-78); ANION GAP 8 MEQ/L (8-16); AST/SGOT 14 U/L (7-37); BILIRUBIN,TOTAL 0.5 MG/DL (0.2-1.0); BLOOD UREA NITROGEN 18 MG/DL (7-18); C REACTIVE PROTEIN QUANTITATIV < 0.30 MG/DL (0.00-0.30); CALCIUM LEVEL 9.2 MG/DL (8.5-10.1); CARBON DIOXIDE LEVEL 25 MEQ/L (21-32); CHLORIDE LEVEL 106 MEQ/L (98-107); CREATININE FOR GFR 0.73 MG/DL (0.70-1.30); GLOMERULAR FILTRATION RATE > 60.0 (>56); GLUCOSE, FASTING 175 MG/DL (70-100); POTASSIUM SERUM 4.3 MEQ/L (3.5-5.1); SODIUM LEVEL 139 MEQ/L (136-145); TOTAL PROTEIN 7.6 GM/DL (6.4-8.2)
[2017-09-30 13:10] LABS: ERYTHROCYTE SEDIMENTATION RATE 20 mm/hr (0-20)
== END ==
LOC: M SFHCPLAZ 09:59
DX: K65.1 Peritoneal abscess (principal); N39.0 Urinary tract infection, site not specified
CPT/HCPCS: 80053

== ENCOUNTER → 2018-07-24 | Outpatient (CLI) | payer MEDICARE ==
[~2018-07-24] MED LIST: ASPI81TA85 PO; CINN500T PO; ENAL2.5T PO; ENAL20TA PO; GABA-1171 PO; GLIP5TAB8 PO; HYDR25TAB PO; INSULANT SC; LIDO5OIN28 TOP; ZOCO10TA PO
--- NOTE | 2018-07-24 16:36 | REP ---
Clinical: Scrotal pain. Technique: Real time jordan scale and color Doppler evaluation using linear high frequency transducer. Findings: The right testicle and epididymis are normal in contour, size, echogenicity, and vascularity without torsion, infectious/inflammatory process, or mass lesion. No hydrocele. No varicocele. Right testicle measures 3.7 x 2.0 x 2.6 cm. The left testicle demonstrates a 5.2 x 3.4 x 4.4 cm hyperechoic area along the lateral upper pole with surrounding hypodense halo and very subtle vascularity. The findings are nonspecific and not particularly pathognomonic for single lesion. Differential diagnosis cannot exclude forming granuloma and less likely focal neoplasm. Incidental left epididymal head cyst measures 8.8 mm maximal diameter. Left-sided varicoceles are identified on Valsalva measuring up to 3 mm diameter. No significant hydrocele. Right testicle measures 3.8 x 2.0 x 2.5 cm. Impression: 1. Subtle hyperechoic lesion in the left testicle should be correlated with physical examination. Consider short-term follow-up reevaluation. Differential diagnosis includes but is not limited to granuloma, lymphoma, neoplasm. Electronically Signed by Jarad Irwin MD 07/24/2018 04:28 P
== END ==
LOC: M RAD 15:02
PROVIDERS: ATTEND Urology
DX: N50.89 Other specified disorders of the male genital organs (principal)

== ENCOUNTER → 2019-02-09 | Outpatient (CLI) | payer MEDICAID, MEDICARE ==
--- NOTE | 2019-02-09 11:57 | REP ---
Oral ultrasound for follow-up of left testicular mass: Comparison is 07/24/2018. The testes are normal size. The right testis measures 4.3 x 1.7 x 2.9 cm. The left testis measures 4.4 x 1.7 x 2.2 cm. There is vascular flow in both testes. The Doppler resistive index of the parenchymal arteries of the right testis is 0.66 and left testis 0.75. There is a right epididymal head cyst measuring up to 3.3 mm left epididymal head cyst measuring up to 10 mm. The epididymi are otherwise unremarkable. There is a hyperechoic focal lesion and the left testis at the mid pole as previously. Today this lesion measures 3.2 by 3.5 x 1.9 mm. Previously this lesion measured 5.2 x 3.4 x 4.4 mm. Has decreased in size. Impression: The hyperechoic lesion in the left testis has decreased in size, therefore, likely not neoplasm. As a precaution, I would recommend follow-up scrotal ultrasonography in the another 6 months for more assurance. Electronically Signed by Corby Pratt MD 02/09/2019 11:48 A
== END ==
LOC: M RAD 09:32
PROVIDERS: ATTEND Urology
DX: N50.9 Disorder of male genital organs, unspecified (principal)

== ENCOUNTER → 2019-12-14 | Outpatient (CLI) | payer MEDICARE ==
[~2019-12-14] MED LIST changes: -ASPI81TA85 PO; +ASPI81TA86 PO; +ENAL1TAB46 PO; -ENAL2.5T PO; -ENAL20TA PO; +ENAL20TA11 PO
--- NOTE | 2019-12-14 15:04 | REP ---
Clinical: Left testicular mass. Comparison: 02/09/2019. Technique: Real time jordan scale and color Doppler evaluation using linear high frequency and curved array transducers. Findings: Evaluation of the right derek scrotum demonstrates stable 4 x 4 x 5 mm epididymal cyst and essentially normal appearance to the right testicle. No associated hydrocele or varicocele noted. Right testicle measures 4.2 x 2.2 x 2.8 cm. Evaluation of the left derek scrotum demonstrates stable 10 mm epididymal cyst. Left testicle demonstrates three small hyperechoic avascular foci measuring 3 x 3 x 4 mm, 1 x 1 x 2 mm, and 2 x 1 x 2 mm which are of uncertain significance and similar to prior examination in morphology. Left testicle measures 3.9 x 1.8 x 2.8 cm. No hydrocele or varicocele noted. Impression: 1. Current examination demonstrates three vague hyperechoic areas in the left testicle similar to prior examination and unchanged in overall morphology/appearance. These findings are of uncertain significance. 2. Solitary epididymal head cysts again noted and essentially unchanged. Electronically Signed by Jarad Irwin MD 12/14/2019 02:55 P
== END ==
LOC: M RAD 14:05
PROVIDERS: ATTEND Urology
DX: N50.89 Other specified disorders of the male genital organs (principal)